=== PATIENT | male | born 2000 | race Caucasian/White ===

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

== ENCOUNTER 2025-02-18 08:12 | Emergency (ER) | payer OTHER, SELFPAY ==
[2025-02-18 08:26] VITALS: BP 118/76; PULSE 85; RESP 16; TEMP 36.6; O2SAT 100
--- NOTE | 2025-02-18 08:32 | ED_ITS ---
HPI - URI/Sore Throat General Chief Complaint: Upper Respiratory Infection Stated Complaint: FEVER/CHILLS/SORE THROAT/HEADACHE Time Seen by Provider: 02/18/25 08:27 Source: patient and RN notes reviewed Mode of arrival: ambulatory Limitations: no limitations History of Present Illness HPI Narrative: 24-year-old male patient presents today with a 2 day history of sore throat, fever, chills. Denies cough, congestion rhinorrhea. He has been taking ibuprofen with some relief and currently rates his pain 4/10. Denies any known sick contacts. Related Data Allergies Allergy/AdvReac Type Severity Reaction Status Date / Time No Known Allergies Allergy Verified 04/28/21 15:40 PMFSH Past Medical History Medical History No significant active problems Social History Social History Alcohol intake: current Comments At time of signature, I have reviewed and agree with nursing past medical, surgical, social and family history unless otherwise noted. Please see nursing chart for further information. There is no relevant family history pertinent to the presenting complaint Exam Narrative: GENERAL: Mildly ill-appearing, well-nourished, and in no acute distress. HEAD: Normocephalic, atraumatic. EYES: EOMI. No redness or drainage. Conjunctivae normal. ENT: Mucous membranes pink and moist. Nares clear. No rhinorrhea. TMs normal bilaterally. Throat mildly erythematous without edema or exudate. Uvula midline. NECK: Normal AROM. Supple. Bilateral anterior cervical chain lymphadenopathy CHEST: No respiratory distress. Clear to auscultation. HEART: Regular rate and rhythm. No murmur appreciated. EXTREMITIES: Normal range of motion. No edema. SKIN: Warm, dry, no rash. Capillary refill normal. Normal skin turgor. NEURO: No focal deficits. Alert and oriented x3. Gait steady. PSYCH: Normal affect. No signs of depression or anxiety. Course Course Level of Care: Express Care Visit Vital Signs Vital signs: Vital Signs Temperature 97.8 F 02/18/25 08:26 Pulse Rate 85 02/18/25 08:26 Respiratory Rate 16 02/18/25 08:26 Blood Pressure 118/76 02/18/25 08:26 Pulse Oximetry 100 02/18/25 08:26 Temperature 97.8 F 02/18/25 08:26 Pulse Rate 85 02/18/25 08:26 Respiratory Rate 16 02/18/25 08:26 Blood Pressure 118/76 02/18/25 08:26 Pulse Oximetry 100 02/18/25 08:26 Review [facility] Narrative Medical decision making narrative: 24-year-old male patient presents today with a 2 day history of sore throat, fever, chills. Denies cough, congestion rhinorrhea. He has been taking ibuprofen with some relief and currently rates his pain 4/10. Denies any known sick contacts. Upon exam, patient is mildly ill appearing with a mildly erythematous throat without edema or exudate with some cervical chain lymphadenopathy. Testing negative. Strep culture pending. Symptoms likely viral in etiology. Discussed [id number] medication use and duration of illness. No prescription medications indicated at this time. Anticipatory guidance given. Patient agrees with plan. Vital signs stable. Differential Diagnosis Differential Diagnosis: URI, pharyngitis, strep throat, influenza, COVID Lab Data [facility] Lab Attestation statement: I personally reviewed the patient's lab results. Lab results narrative: Rapid strep negative, COVID negative, influenza negative Critical Care Time Critical Care Time Critical Care Time: No Discharge Plan Discharge Clinical Impression: Viral syndrome Patient Disposition: Home Condition: Stable Instructions: Viral Syndrome (ED) Additional Instructions: Your COVID-19, influenza, and rapid strep swab were negative today at [facility]. You will be notified in a few days if the culture comes back positive for strep, and appropriate antibiotics will be called in for you at that time. Your symptoms are likely due to a viral illness, which is not treated with antibiotics. Viral symptoms can be present for up to 7-10 days. Take Tylenol or ibuprofen for fever or pain. Rest and stay hydrated. Follow up with your PCP in 7 days if symptoms are not improving. Go to the ER immediately if you have any difficulty breathing or swallowing. Patient Language: Martiniquais Prescriptions: No Action azelastine 137 mcg (0.1 %) aerosol,spray 137 mcg NASAL Q12H Qty: 30 0RF Rx Instructions: administer into each nostril Follow-up/Referrals: PHYSICIAN,MOLD HOISTER [Primary Care Provider, Internal Medicine] Time of Disposition: 08:41
[2025-02-18 08:43] LABS: EDCOVIDSCREEN Negative (Negative); EDINFLUASCREEN Negative (Negative); EDINFLUBSCREEN Negative (Negative); EDSTREPNEGPOS1 Negative (Negative)
== END 2025-02-18 08:45 | disposition home or self-care (01) ==
PROVIDERS: Emergency Provider Nurse Practitioner
DX: B34.9 Viral infection, unspecified (principal); Z20.822 Contact with and (suspected) exposure to COVID-19
CPT/HCPCS: 87081; 87426; 87804; 87880; 99213; G0463